=== PATIENT | male | born 1995 | race Caucasian/White ===

== ENCOUNTER → 2017-12-09 | Outpatient (CLI) | payer OTHER | LOC: M RAD 12:38 | DX: S93.402A Sprain of unspecified ligament of left ankle, initial encounter (principal); M79.89 Other specified soft tissue disorders; X58.XXXA Exposure to other specified factors, initial encounter; Y92.9 Unspecified place or not applicable | CPT/HCPCS: 73610 ==

== ENCOUNTER 2019-02-15 12:34 | Emergency (ER) | payer OTHER ==
[~2019-02-15] VITALS: Ht 182.9 cm; Wt 91.5 kg
[~2019-02-15 12:34] MED LIST: NEOSPORIN TOP OINT 15GM TOP ONE
[2019-02-15] MEDS ORDERED: LIDOCAINE 1% MDV 20ML VIAL SC ONE (13:15)
[2019-02-15] MEDS ORDERED: IBUP80TA PO (13:37)
[2019-02-15 13:44] VITALS: BP 125/64
[2019-02-15] MEDS ORDERED: IBUPROFEN 800 MG TAB PO ONE (13:45)
== END 2019-02-15 13:56 | disposition home or self-care (01) ==
LOC: M ED 12:34
DX: L60.0 Ingrowing nail (principal); L03.031 Cellulitis of right toe

== ENCOUNTER → 2019-02-20 | Outpatient (CLI) | payer OTHER ==
[~2019-02-20] MED LIST changes: +IBUP80TA PO; -NEOSPORIN TOP OINT 15GM TOP ONE
--- NOTE | 2019-02-20 20:33 | REP ---
REASON: Pain after trauma. No priors. FINDINGS: No acute fracture or destructive osseous lesion. Electronically Signed by Rik Brooks DO 02/21/2019 09:04 A
== END ==
LOC: M LRY 16:58
PROVIDERS: ATTEND Physician Assistant
DX: M79.645 Pain in left finger(s) (principal)

== ENCOUNTER 2019-07-16 14:52 | Day surgery (SDC) | payer OTHER ==
[~2019-07-16] VITALS: Ht 182.9 cm; Wt 92.8 kg
[2019-07-16 16:04] LABS: BASO % 0.3 % (0.0-1.0); EOS # 0.1 10^3/uL (0.0-0.5); EOS % 0.7 % (0.0-3.0); HEMOGLOBIN 14.7 g/dl (13.5-17.5); LYMPH % 14.1 % (24.0-44.0); MEAN CORPUSCULAR HEMOGLOBIN 29.3 pg (27.0-33.0); MEAN CORPUSCULAR HGB CONC 32.7 g/dl (32.0-36.5); MEAN CORPUSCULAR VOLUME 89.6 fl (80.0-96.0); MONO # 1.2 10^3/uL (0.0-0.8); MONO % 8.4 % (0.0-5.0); NEUTROPHILS # 10.8 10^3/uL (1.5-8.5); NEUTROPHILS % 76.2 % (36.0-66.0); PLATELET COUNT, AUTOMATED 274 10^3/uL (150-450); RED BLOOD COUNT 5.02 10^6/uL (4.30-6.10); WHITE BLOOD COUNT 14.2 10^3/uL (4.0-10.0)
[2019-07-16 16:26] LABS: ALBUMIN 4.3 GM/DL (3.2-5.2); ALT/SGPT 31 U/L (12-78); BILIRUBIN,DIRECT 0.1 MG/DL (0.0-0.2); BILIRUBIN,TOTAL 0.4 MG/DL (0.2-1.0); BLOOD UREA NITROGEN 8 MG/DL (7-18); CALCIUM LEVEL 9.4 MG/DL (8.5-10.1); CARBON DIOXIDE LEVEL 28 MEQ/L (21-32); CHLORIDE LEVEL 105 MEQ/L (98-107); GLOMERULAR FILTRATION RATE > 60.0 (>60); GLUCOSE, FASTING 75 MG/DL (70-100); LIPASE 72 U/L (73-393); POTASSIUM SERUM 4.2 MEQ/L (3.5-5.1); SODIUM LEVEL 140 MEQ/L (136-145); TOTAL PROTEIN 8.2 GM/DL (6.4-8.2)
[2019-07-16] MEDS ORDERED: MORPHINE 4 MG/ML 1ML VIAL/SYRINGE (J2270) IV ONE (18:15)
[2019-07-16] MEDS ORDERED: ISOVUE-370 76% 100ML VIAL (Q9967) As Ordered ONE (18:19)
--- NOTE | 2019-07-16 19:25 | REPVR ---
PROCEDURE INFORMATION: Exam: CT Abdomen And Pelvis With Contrast Exam date and time: 07/16/2019 6:27 PM Age: 24 years old Clinical indication: Abdominal pain; Flank; Right lower quadrant (rlq); Additional info: Rlq pain; R/O appy TECHNIQUE: Imaging protocol: Computed tomography of the abdomen and pelvis with intravenous contrast. Radiation optimization: All CT scans at this facility use at least one of these dose optimization techniques: automated exposure control; mA and/or kV adjustment per patient size (includes targeted exams where dose is matched to clinical indication); or iterative reconstruction. Contrast material: ISOVUE 370; Contrast volume: 100 ml; Contrast route: IV; COMPARISON: No relevant prior studies available. FINDINGS: Liver: Normal. No mass. Gallbladder and bile ducts: No calcified stones. No ductal dilation. Pancreas: Normal. No ductal dilation. Spleen: Normal. No splenomegaly. Adrenals: Normal. No mass. Kidneys and ureters: No hydronephrosis. No urolithiasis. Stomach and bowel: Colonic diverticulosis without evidence of diverticulitis. No mucosal thickening. No obstruction. Appendix: Dilated, thickwalled appendix with hyperenhancing mucosa, measuring up to 2.4 cm in diameter. There is a 7 mm appendicolith at the base of the appendix. There is periappendiceal fat stranding. Intraperitoneal space: Small free fluid in the pelvis. No pneumoperitoneum. Vasculature: No abdominal aortic aneurysm. Lymph nodes: Multiple enlarged mesenteric lymph nodes, most pronounced in the right lower quadrant. Bladder: Unremarkable. Reproductive: Unremarkable. Bones/joints: Unremarkable. No acute fracture. Soft tissues: Unremarkable. IMPRESSION: 1. Acute appendicitis. 2. Small ascites. 3. Reactive mesenteric lymph nodes. 4. Nonacute/incidental findings in the report. Electronically signed by: Ángel Briggs On 07/16/2019 19:25:19 PM
[2019-07-16] MEDS ORDERED: PIPERACILLIN/TAZOBACTAM SOD 3.375 GM in D5W MINI-BAG PLUS 50 ML IV ONE (20:00)
[2019-07-16] MEDS ORDERED: BUPIVACAINE HCL 0.25% 30 ML VIAL As Ordered ONE (21:33)
[2019-07-16] MEDS ORDERED: PROPOFOL 200 MG/20 ML VIAL As Ordered ONE (21:46)
[2019-07-16] MEDS ORDERED: ONDANSETRON 4MG/2ML VIAL (J2405) As Ordered ONE (21:46)
[2019-07-16] MEDS ORDERED: dexameTHASONE 4 MG/ML 1ML VIAL (J1100) As Ordered ONE (21:46)
[2019-07-16] MEDS ORDERED: MIDAZOLAM INJ 2 MG/2 ML VIAL (J2250) As Ordered ONE (21:46)
[2019-07-16] MEDS ORDERED: fentaNYL 250 MCG/5 ML INJECTION (J3010) As Ordered ONE (21:46)
[2019-07-16] MEDS ORDERED: LIDOCAINE 2% INJ 100 MG/5 ML SDV (FOR ANES.) As Ordered ONE (21:46)
[2019-07-16] MEDS ORDERED: ROCURONIUM BROMIDE 50 MG/5 ML VIAL As Ordered ONE (21:46)
[2019-07-16] MEDS ORDERED: SUGAMMADEX SODIUM 500 MG/5 ML VIAL (BRIDION) As Ordered ONE (21:47)
[2019-07-16] MEDS ORDERED: KETOROLAC 60 MG/2 ML VIAL (J1885) As Ordered ONE (21:57)
[2019-07-16] MEDS ORDERED: ACETAMINOPHEN 1000MG 100ML IV BTL (OFIRMEV) (J0131 PER 10MG) As Ordered ONE (21:57)
[2019-07-16] MEDS ORDERED: MORPHINE 2 MG/ML 1ML VIAL (J2270) IV PRN ×2 (23:15→23:30)
[2019-07-16] MEDS ORDERED: IBUPROFEN 600 MG TAB PO PRN (23:15)
[2019-07-16] MEDS ORDERED: ACETAMINOPHEN TAB 650MG DOSE (2X325MG) PO PRN (23:15)
[2019-07-16] MEDS ORDERED: ONDANSETRON 4MG/2ML VIAL (J2405) IV PRN ×2 (23:15→23:30)
[2019-07-16] MEDS ORDERED: NORCO, ANEXSIA 5/325MG TABLET (HYDROcodone/ACETAMINOPHEN) PO PRN (23:15)
[2019-07-16] MEDS ORDERED: LR 1,000 ML IV SCH (23:30)
[2019-07-16] MEDS ORDERED: fentaNYL 100 MCG/2 ML INJECTION (J3010) IV PRN (23:30)
[2019-07-16 23:50] VITALS: BP 112/65
[2019-07-17] VITALS (7 sets, daily range): BP systolic 111–126; BP diastolic 61–71
[2019-07-17] MEDS: LR 1,000 ML IV SCH ×2 (00:06→04:37)
[2019-07-17] MEDS ORDERED: PIPERACILLIN/TAZOBACTAM SOD 3.375 GM in D5W MINI-BAG PLUS 50 ML IV ONE (02:30)
--- NOTE | 2019-07-17 07:29 | RO ---
DATE OF PROCEDURE: 07/16/2019 PREOPERATIVE DIAGNOSIS: Acute appendicitis. POSTOPERATIVE DIAGNOSIS: Acute appendicitis. PROCEDURE PERFORMED: Laparoscopic appendectomy. SURGEON: Dr. Efra Soliz [employer] TECHNICIAN: ANESTHESIA: General. INDICATIONS FOR THE PROCEDURE: The patient is a 24-year-old man who presented to the emergency department with a several-day history of abdominal pain becoming localized into the right lower quadrant. He denied any nausea or vomiting. The pain had gotten quite severe by the time he presented. He was found to be markedly tender in the right lower quadrant and a CT scan revealed an inflamed and dilated appendix with an appendicolith. He is now for laparoscopic appendectomy. OPERATIVE PROCEDURE: The patient was brought to the operating room and placed in the table in a supine position. He was placed under general endotracheal anesthesia. The patient's abdomen was clipped of hair and prepped and draped in a sterile fashion. 0.25% Marcaine was infiltrated at the trocar sites as needed. A short supraumbilical midline incision was made. This was deepened through the subcutaneous tissues and the fascia was opened along the midline. The peritoneum was opened sharply and a Garcia cannula was placed. The abdomen was inflated with carbon dioxide gas. The laparoscope was placed. Initial examination showed a normal-appearing liver. The small and large bowel appeared normal. There was a definite inflammatory mass in the right lower quadrant covered with some omentum. Two 5 mm ports were placed in the left lower quadrant and graspers were inserted. The omentum was peeled away from what proved to be a markedly distended, hard, inflamed appendix. This curved anteriorly at the lateral aspect of the terminal ileum. Some of the lateral attachments of the terminal ileum were divided to allow this to roll medially. I attempted to break apart inflammation between the appendix and the terminal ileum, but there was marked scarring and the appendix was quite firm making grasping this nearly impossible. I was able to create a plane posterior and lateral to the appendix so that the cecum and terminal ileum could be rotated medially. I then used the hook cautery to divide tissues between the terminal ileum and the appendix and was able to create a plane between the inflamed appendix and the surrounding tissues down to the base of the appendix. The appendicular artery was never identified. There was some induration at the base of the appendix, but this did not appear to be so great that the stapler could not be used to resect the appendix. The 45 mm endoscopic linear cutter stapler with a green load was inserted and placed across the base of the appendix and this was then closed and fired. The appendix was placed in an Endopouch. The right lower quadrant was irrigated and inspected. A small amount of fluid was also aspirated from the pelvis. There was no evidence of significant bleeding and the staple closure of the base of the appendix appeared excellent. The patient was returned to a flat position. The abdomen was deflated and the trocars were removed. The appendix was recovered through the supraumbilical site which required extending the fascial and skin incisions slightly because of the marked inflammation and enlargement of the appendix. This was sent for permanent pathology. The fascia at the supraumbilical site was closed with interrupted simple sutures of #2-0 Vicryl. The skin incisions were closed with buried #4-0 Vicryl and Steri-Strips. Light dressings were applied. The patient tolerated the procedure well without apparent complication. He was awakened in the operating room, extubated and moved to the recovery room in stable condition.
--- NOTE | 2019-07-22 17:35 | IPN ---
DATE: 07/17/2019 HISTORY: The patient was admitted last evening with an acute appendicitis and underwent a laparoscopic appendectomy for a markedly dilated but not perforated appendix. He has done well overnight with his diet advanced now to regular. He has been voiding without difficulty. Vital signs show that he has been afebrile with a pulse in the 60s to 70s and a normal blood pressure. Intake and output shows that his oral intake and urine output are excellent. PHYSICAL EXAMINATION: The patient is sitting up in the bed, looking quite comfortable. He is alert and oriented. Heart and lung examinations are unremarkable. The abdomen is flat and soft. He has active bowel sounds. His dressings are dry. He has no undue tenderness. IMPRESSION: The patient is doing well now postoperative day number one from his laparoscopic appendectomy for acute appendicitis. PLAN: The patient will be discharged home today. He was advised that he can take a diet as tolerated. He will not be provided a prescription for any medications as he has not required any pain medications postoperatively. He can take Tylenol or ibuprofen as needed for discomfort. He was advised against any strenuous activity or lifting greater than 25 pounds for two weeks. He is to followup in my office in 10 days or so. He can shower 24 hours after the surgery but should leave the Steri-Strips in place until they come off on their own. 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
== END 2019-07-17 18:14 | disposition home or self-care (01) ==
LOC: M ED 14:52 → M SDC 14:53 → M MSPAV 23:45 → M SDC 07-17 18:14
PROVIDERS: ATTEND Surgery
DX: K35.30 Acute appendicitis with localized peritonitis, without perforation or gangrene (principal)
CPT/HCPCS: 44970; 74177; 80048; 80076; 81001; 83690; 85025; 88304; 96361; 96374; 96375; 96376; 99284; J0131; J1100; J1885; J2250; J2270; J2405; J2543; J3010; Q9967